=== PATIENT | male | born 1945 | race Caucasian/White ===

== ENCOUNTER → 2020-05-23 | Outpatient (CLI) | payer OTHER ==
[~2020-05-23] MED LIST: ATOXIMETIN-B1 CAP PO; CELEBREX200 MG PO; CYCLOBENZAPRINE10 MG PO; ESTER-C 1,0001 EACH PO; NAPROSYN500 MG PO; OMEPRAZOLE40 MG PO; PRILOSEC OTC20 MG PO; TRAMADOL50 MG PO; TYLENOL325 M2 PO
[2020-05-23 13:10] LABS: ALBUMIN 3.8 gm/dl (3.1-4.5); CREATININE 2.2 mg/dL (0.70-1.30)
[2020-05-23 13:11] LABS: POTASSIUM 5.7 mmol/L (3.5-5.1)
== END | disposition home or self-care (01) ==
LOC: LAB 12:32
PROVIDERS: ATTEND Internal Medicine
DX: E87.5 Hyperkalemia (principal)

== ENCOUNTER 2022-03-28 11:51 | Emergency (ER) | payer OTHER ==
[~2022-03-28] VITALS: Ht 185.4 cm; Wt 104.3 kg
[2022-03-28] MEDS ORDERED: FAMOTIDINE40 MG PO (12:13)
[2022-03-28] MEDS ORDERED: CHLORPHENIRAMINE4 M1 PO (12:13)
[2022-03-28] MEDS ORDERED: LISINOPRIL10 M1 PO (12:16)
[2022-03-28] MEDS ORDERED: DONEPEZIL HYDROC5 MG PO (12:16)
[2022-03-28] MEDS ORDERED: DULOXETINE HCL30 MG PO (12:17)
[2022-03-28] MEDS ORDERED: ATORVASTATIN CA40 M1 PO (12:17)
[2022-03-28 12:55] LABS: BASO % 0.3 % (0.0-1.0); EOS % 0.1 % (1.0-4.0); HEMATOCRIT 49.8 % (42.0-52.0); LYMPH # 0.5 10*3/uL (1.3-4.4); LYMPH % 7.6 % (27.0-41.0); MEAN CELL VOLUME 94.9 fl (80.0-94.0); MEAN CORPUSCULAR HGB 30.7 pg (27.0-31.0); MEAN CORPUSCULAR HGB CONC 32.3 g/dl (33.0-37.0); MEAN PLATELET VOLUME 10.6 fl (9.6-12.3); MONO # 0.6 10*3/uL (0.1-1.0); MONO % 8.2 % (3.0-9.0); NEUT # 5.7 10*3/uL (2.3-7.9); NEUT % 83.5 % (47.0-73.0); PLATELET COUNT AUTOMATED 172 10*3/uL (130-400); RED BLOOD COUNT 5.25 10*6/uL (4.50-5.90); RED CELL DISTRI WIDTH 12.7 % (0-14.5); WHITE BLOOD COUNT 6.9 10*3/uL (4.8-10.8)
[2022-03-28 13:06] LABS: ACT PARTIAL THROMBO TIME 30.8 SECONDS (20.0-32.1); INTERNATIONAL NORM RATIO 0.9 (2.0-3.5)
[2022-03-28 13:11] LABS: CREATININE 1.86 mg/dL (0.70-1.30); POTASSIUM 5.2 mmol/L (3.5-5.1); TOTAL PROTEIN 8.1 gm/dL (6.4-8.2)
[2022-03-28 13:46] LABS: BILIRUBIN Negative (Negative); BLOOD Trace-Lysed (Negative); CLARITY Clear (Clear); COLOR Yellow (Yellow); GLUCOSE Negative (Negative); KETONE Trace (Negative); LEUKO ESTERASE 2+ (Negative); NITRITE Negative (Negative); PH 5.5 (4.5-8.0); SPECIFIC GRAVITY 1.015 (1.001-1.030); UROBILINOGEN 0.2 E.U./dl (0.0-1.0)
[2022-03-28 13:55] LABS: BACTERIA 2+
[2022-03-28 13:56] LABS: WBC 21-30 wbc/hpf (0-5)
[2022-03-28] MEDS ORDERED: CEPHALEXIN500 M1 PO ×2 (14:24)
[2022-03-29] MEDS ORDERED: ZONEGRAN25 MG PO (06:39)
[2022-03-29] MEDS ORDERED: NEURONTIN600 MG PO (06:39)
== END 2022-03-28 14:48 | disposition home or self-care (01) ==
LOC: ED 11:51
PROVIDERS: Family Medicine
DX: N39.0 Urinary tract infection, site not specified (principal); Z98.890 Other specified postprocedural states; Z90.49 Acquired absence of other specified parts of digestive tract; Z79.899 Other long term (current) drug therapy